=== PATIENT | female | born 1985 | race Caucasian/White ===

== ENCOUNTER 2021-05-03 16:52 | Emergency (ER) | payer OTHER ==
[2021-05-03 17:02] VITALS: BP 146/92
[2021-05-03] MEDS ORDERED: LIDOCAINE 1%-EPI 1:100000 20 ML MDV SUBQ STA (17:06)
--- NOTE | 2021-05-03 17:07 | ED Physician Documentation ---
PD HPI SKIN - Stated complaint Stated Complaint: FEMALE - Chief complaint Chief Complaint: Wound - History obtained from History obtained from: Patient - Additional information Additional information: 1-1/2 months of a painful lesion left groin, no fevers. Some drainage. Review of Systems Constitutional: reports: Reviewed and negative Eyes: reports: Reviewed and negative Ears: reports: Reviewed and negative Nose: reports: Reviewed and negative PD PAST MEDICAL HISTORY - Present Medications Home Medications: Ambulatory Orders Medication Instructions Recorded Confirmed clindamycin HCL [Cleocin HCl] 300 mg PO QID #28 cap 05/03/21 - Allergies Allergies/Adverse Reactions: Allergies Allergy/AdvReac Type Severity Reaction Status Date / Time amoxicillin Allergy Hives Verified 05/03/21 17:02 hydrocodone Allergy Itching Verified 05/03/21 17:02 PD ED PE NORMAL - Vitals Vital signs reviewed: Yes - General General: Alert and oriented X 3, No acute distress - Female Female : Other (What is probably a firm sebaceous cyst in the left posterior inguinal crease. Examined procedure done with female electrical power engineer at the bedside.) - Neuro Neuro: Alert and oriented X 3, Normal speech Results - Vitals Vitals: Vital Signs - 24 hr 05/03/21 17:00 Temperature 36.8 C Heart Rate 83 Respiratory 18 Rate Blood Pressure 146/92 H O2 Saturation 99 Oxygen O2 Source Room air Procedures - Abscess I&D (location) L groin Preparation: Chlorhexadine, Lidocaine 1% Incision: Incised with scalpel, Purulent drainage, Loculations broken Other: Antibiotic prescribed Departure - Departure Disposition: 01 Home, Self Care Clinical Impression: Sebaceous cyst of labia Condition: Good Record reviewed to determine appropriate education?: Yes Instructions: ED Abscess IandD Prescriptions: clindamycin HCL [Cleocin HCl] 300 mg PO QID #28 cap Comments: [place] and consider dermatology or surgery referral if there is a persistent lump there consistent with an incompletely removed sebaceous cyst.
== END 2021-05-03 17:39 | disposition home or self-care (01) ==
LOC: ED 16:52
DX: N94.89 Other specified conditions associated with female genital organs and menstrual cycle (principal)
CPT/HCPCS: 10060

== ENCOUNTER 2021-05-16 20:27 | Emergency (ER) | payer OTHER ==
[2021-05-16 20:33] VITALS: BP 146/105
[2021-05-16] MEDS ORDERED: ONDANSETRON ODT 4 MG TABLET TL STA (20:59)
[2021-05-16] MEDS ORDERED: ONDANSETRON ODT 4 MG Prepack 2 TL PRN (21:00)
--- NOTE | 2021-05-16 21:03 | ED Physician Documentation ---
History of Present Illness - Stated complaint Stated Complaint: STOMACH/N/V - Chief complaint Chief Complaint: Abd Pain - History obtained from History obtained from: Patient - Additonal information Additional information: Patient comes emergency department for chief complaint of nausea and vomiting, as well as loose stools. She states she has had a little bit of pain in her superiormost epigastric area. This is all started this evening. The patient states she ate pot roast with vegetables for dinner and that she has had this meal many times before without any issues. No history of recurrent nausea or abdominal pain with fatty meals. No family history of gallbladder issues. No fevers or chills. No sick contacts that she knows of. No other complaints at this time. Review of Systems Ten Systems: 10 systems reviewed and negative Constitutional: reports: Reviewed and negative Eyes: reports: Reviewed and negative Ears: reports: Reviewed and negative Nose: reports: Reviewed and negative Throat: reports: Reviewed and negative Cardiac: reports: Reviewed and negative Respiratory: reports: Reviewed and negative GI: reports: Abdominal Pain, Nausea, Vomiting : reports: Reviewed and negative Skin: reports: Reviewed and negative Musculoskeletal: reports: Reviewed and negative Neurologic: reports: Reviewed and negative Psychiatric: reports: Reviewed and negative Endocrine: reports: Reviewed and negative Immunocompromised: reports: Reviewed and negative PD PAST MEDICAL HISTORY - Past Surgical History Past Surgical History: Yes /SETTER UP: Breast implants - Present Medications Home Medications: Ambulatory Orders Medication Instructions Recorded Confirmed clindamycin HCL [Cleocin HCl] 300 mg PO QID #28 cap 05/03/21 Ondansetron Odt [Zofran] 4 mg TL Q6H PRN #10 tablet 05/16/21 - Allergies Allergies/Adverse Reactions: Allergies Allergy/AdvReac Type Severity Reaction Status Date / Time amoxicillin Allergy Hives Verified 05/16/21 20:32 hydrocodone Allergy Itching Verified 05/16/21 20:32 - Social History Does the pt smoke?: No Smoking Status: Never smoker Does the pt drink ETOH?: Yes Does the pt have substance abuse?: No - Immunizations Immunizations are current?: Yes PD ED PE NORMAL - Vitals Vital signs reviewed: Yes - General General: Alert and oriented X 3, No acute distress, Well developed/nourished - HEENT HEENT: Atraumatic, PERRL, EOMI, Moist mucous membranes - Neck Neck: Supple, no meningeal sign - Cardiac Cardiac: RRR, No murmur - Respiratory Respiratory: No respiratory distress, Clear bilaterally - Abdomen Abdomen: Soft, Non distended, Other (Mild tenderness right upper quadrant and epigastrium. No rebound or guarding.) - Derm Derm: Normal color, Warm and dry, No rash - Extremities Extremities: No deformity, No edema - Neuro Neuro: Alert and oriented X 3, public relations intern 2-12 intact, Normal speech - Psych Psych: Normal mood, Normal affect Results - Vitals Vitals: Vital Signs - 24 hr 05/16/21 20:30 Temperature 36.1 C L Heart Rate 98 Respiratory 18 Rate Blood Pressure 146/105 H O2 Saturation 100 Oxygen O2 Source Room air PD MEDICAL DECISION MAKING - ED course Complexity details: considered differential, d/w patient ED course: Patient was given an oral dissolving Zofran and a prepack for the same. I discussed that if she does develop recurrent upper GI symptoms after eating fatty meals, she should talk to her doctor about the possibility of work-up for cholelithiasis. We discussed the usual indications for return to the emergency department. Departure - Departure Disposition: 01 Home, Self Care Clinical Impression: Gastroenteritis Condition: Stable Instructions: ED Gastroenteritis Viral Prescriptions: Ondansetron Odt [Zofran] 4 mg TL Q6H PRN #10 tablet PRN Reason: Nausea / Vomiting Forms: Activity restrictions
== END 2021-05-16 21:34 | disposition home or self-care (01) ==
LOC: ED 20:27
DX: K52.9 Noninfective gastroenteritis and colitis, unspecified (principal)
CPT/HCPCS: 99282; 99284; Q0162

== ENCOUNTER 2021-09-13 20:21 | Emergency (ER) | payer OTHER ==
--- NOTE | 2021-09-13 20:34 | ED Physician Documentation ---
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 This is a task she has done in the past without problems. No direct impact or injury. No recent illness.) Timing - details: Intermittant Quality: Sharp, Pain Location: Substernal (She notes is midsternal just right of center with a sharp pain that comes on intermittently without obvious provocation lasts for seconds then fades over a minute and then is gone. She has had it 6-10 times through the day.), Right chest Radiation: No: Neck, Back, Abdominal Improved by: No: Rest Worsened by: No: Inspiration, Eating, Movement Associated symptoms: Shortness of air, Feeling faint / dizzy. No: Nausea, General Weakness, Palpitations Similar symptoms before: Has not had sx before Recently seen: Clinic (IUD removal 3 weeks ago without problems. Denies likelihood of .) Review of Systems Constitutional: denies: Fever, Chills Nose: denies: Rhinorrhea / runny nose, Congestion Throat: denies: Sore throat Cardiac: reports: Chest pain / pressure. denies: Palpitations, Pedal edema, Calf pain Respiratory: reports: Dyspnea. denies: Cough, Wheezing GI: denies: Abdominal Pain, Nausea, Vomiting, Diarrhea Skin: denies: Rash, Lesions Musculoskeletal: denies: Extremity swelling Neurologic: reports: Near syncope (has felt lightheaded with the episodes at times, not consistently.). 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 - Present Medications Home Medications: Ambulatory Orders Medication Instructions Recorded Confirmed Ondansetron Odt [Zofran] 4 mg TL Q6H PRN #10 tablet 05/16/21 - Allergies Allergies/Adverse Reactions: Allergies Allergy/AdvReac Type Severity Reaction Status Date / Time amoxicillin Allergy Hives Verified 09/13/21 20:27 hydrocodone Allergy Itching Verified 09/13/21 20:27 - Social History Does the pt smoke?: No Smoking Status: Never smoker Does the pt drink ETOH?: Yes ETOH Use: Other (occasional) Does the pt have substance abuse?: No - Family History Family history: denies: CAD, Sudden - Immunizations Immunizations are current?: Yes PD ED PE NORMAL - Vitals Vital signs reviewed: Yes - General General: Alert and oriented X 3, Well developed/nourished, Other (seems some tachypnea but is able to talk complete sentences. ) - HEENT HEENT: Atraumatic - Neck Neck: Supple, no meningeal sign, No adenopathy - Cardiac Cardiac: RRR, No murmur - Respiratory Respiratory: No respiratory distress, Clear bilaterally, Other (no chestwall tenderness. ) - Abdomen Abdomen: Soft, Non tender - Derm Derm: Normal color, Warm and dry - Extremities Extremities: No tenderness to palpate, No edema, No calf tenderness / cord - Neuro Neuro: Alert and oriented X 3, No motor deficit, Normal speech Results - Vitals Vitals: Vital Signs - 24 hr 09/13/21 09/13/21 09/13/21 20:27 20:32 21:01 Temperature 36.7 C 36.7 C Heart Rate 88 88 88 Respiratory 20 20 15 Rate Blood Pressure 151/98 H 151/98 H 127/69 O2 Saturation 100 100 100 09/13/21 09/13/21 21:02 21:40 Temperature 36.9 C Heart Rate 86 85 Respiratory 14 18 Rate Blood Pressure 126/83 H 124/70 O2 Saturation 99 100 Oxygen O2 Source Room air - EKG (time done) 20:25 Rate: Rate (enter#) (86) Rhythm: Sinus bradycardia Left Hand: Normal Intervals: Normal LA QRS: Normal Ischemia: Normal ST segments. No: ST elevation c/w ischemia, ST depression - Labs Labs: Laboratory Tests 09/13/21 09/13/21 09/13/21 20:32 20:32 20:32 WBC 12.3 H RBC 4.10 L Hgb 12.6 Hct 37.8 MCV 92.2 MCH 30.7 MCHC 33.3 RDW 12.0 Plt Count 236 MPV 9.9 Neut # (Auto) 7.2 H Lymph # (Auto) 4.0 H [place] # (Auto) 0.7 Eos # (Auto) 0.3 Baso # (Auto) 0.1 Absolute Nucleated RBC 0.00 Nucleated RBC % 0.0 D-Dimer Sodium 138 Potassium 3.2 L Chloride 105 Carbon Dioxide 26 Anion Gap 7.0 BUN 15 Creatinine 0.7 Estimated GFR (MDRD) 96 Glucose 111 H Calcium 9.1 Total Bilirubin 0.5 AST 18 ALT 22 Alkaline Phosphatase 53 Troponin I High Sens 3.0 B-Natriuretic Peptide Total Protein 6.9 Albumin 3.9 Globulin 3.0 Albumin/Globulin Ratio 1.3 Lipase 42 09/13/21 09/13/21 20:32 20:32 WBC RBC Hgb Hct MCV MCH MCHC RDW Plt Count MPV Neut # (Auto) Lymph # (Auto) [place] # (Auto) Eos # (Auto) Baso # (Auto) Absolute Nucleated RBC Nucleated RBC % D-Dimer < 200.0 L Sodium Potassium Chloride Carbon Dioxide Anion Gap BUN Creatinine Estimated GFR (MDRD) Glucose Calcium Total Bilirubin AST ALT Alkaline Phosphatase Troponin I High Sens B-Natriuretic Peptide 27 Total Protein Albumin Globulin Albumin/Globulin Ratio Lipase - Rads (name of study) chest xray Radiology: Prelim report reviewed (no acute process), See rad report PD MEDICAL DECISION MAKING - ED course Complexity details: reviewed results, re-evaluated patient, considered differential, d/w patient Departure - Departure Disposition: Home, Self Care Clinical Impression: Chest pain Qualifiers: Chest pain type: precordial pain Qualified Code(s): R07.2 - Precordial pain Condition: Stable Record reviewed to determine appropriate education?: Yes Instructions: ED Chest Pain Atypical Unkn Cause Follow-Up: [facility] [Provider Group] Comments: Your blood tests here as well as your EKG and chest x-ray are normal. Your blood tests included those to evaluate for heart attack (troponin), heart failure (BNP), and blood clots (D-dimer). On other blood testing your potassium was minimally low but should not contribute to pain like this. It was 3.2. Consider just some potassium rich foods over the next several days or week. With these testings, we can exclude pneumothorax, pneumonia, fluid in the lungs, heart attack or carditis, blood clots, pancreatitis. Unclear the cause of your pain. At this point would consider likely muscular as this would not really show up in any of the above tests. With that in mind, I would suggest using some anti-inflammatory such as ibuprofen 400 to 600 mg 3 times a day for the next several days. When the pain hits, you could try a Tums or antacid and see if it has an effect on it though this does not really sound like heartburn. Recheck if not completely resolved over the next 2 to 3 days with persisting episodes. Follow-up or return if other symptoms develop as well such as cough, fever, more consistent pain, vomiting rash etc. Discharge Date/Time: 09/13/21 21:41
[2021-09-13 20:39] LABS: EOSINOPHILS # (AUTO) 0.3 10^3/uL (0.0-0.7); EOSINOPHILS % (AUTO) 2.5 %
[2021-09-13 20:42] LABS: BASOPHILS # (AUTO) 0.1 10^3/uL (0.0-0.1); BASOPHILS % (AUTO) 0.5 %; HCT - HEMATOCRIT 37.8 % (37.0-47.0); HGB - HEMOGLOBIN 12.6 g/dL (12.0-16.0); LYMPHOCYTES % (AUTO) 32.3 %; MEAN CORPUSCULAR HEMOGLOBIN 30.7 pg (27.0-31.0); MEAN CORPUSCULAR HGB CONC 33.3 g/dL (32.0-36.0); MEAN CORPUSCULAR VOLUME 92.2 fL (81.0-99.0); MEAN PLATELET VOLUME 9.9 fL (7.9-10.8); MONOCYTES # (AUTO) 0.7 10^3/uL (0.0-1.0); MONOCYTES % (AUTO) 5.8 %; NEUTROPHILS # (AUTO) 7.2 10^3/uL (1.5-6.6); NEUTROPHILS % (AUTO) 58.7 %; PLT - PLATELET COUNT 236 10^3/uL (130-450); WHITE BLOOD COUNT 12.3 x10^3/uL (4.8-10.8)
[2021-09-13] MEDS ORDERED: KETOROLAC 30 MG/ML VIAL IVP STA (20:48)
[2021-09-13] MEDS ORDERED: MAG HYDROX/AL HYDROX/SIMETH 30 ML UDC PO STA (20:50)
[2021-09-13 20:56] LABS: ALBUMIN 3.9 g/dL (3.2-5.5); ALBUMIN/GLOBULIN RATIO 1.3 (1.0-2.2); BILIRUBIN,TOTAL 0.5 mg/dL (0.2-1.0); CALCIUM 9.1 mg/dL (8.5-10.3); CREATININE 0.7 mg/dL (0.4-1.0); POTASSIUM 3.2 mmol/L (3.5-5.0); TOTAL PROTEIN 6.9 g/dL (6.7-8.2)
--- NOTE | 2021-09-13 20:59 | XRAY Report ---
PROCEDURE: Chest 1 View X-Ray INDICATIONS: Chest pain TECHNIQUE: One view of the chest was acquired. COMPARISON: None FINDINGS: Surgical changes and devices: None. Lungs and pleura: No pleural effusions or pneumothorax. Lungs are clear. Mediastinum: Mediastinal contours appear normal. Heart size is normal. Bones and chest wall: No suspicious bony lesions. Overlying soft tissues appear unremarkable. IMPRESSION: No acute process. Reviewed by: Loreto Epperson MD on 09/13/2021 8:58 PM [facility] Approved by: Loreto Epperson MD on 09/13/2021 8:58 PM [facility] Station ID: [id number]
[2021-09-13 21:41] VITALS: BP 124/70
== END 2021-09-13 21:41 | disposition home or self-care (01) ==
LOC: ED 20:21
DX: R07.2 Precordial pain (principal)
CPT/HCPCS: 36415; 71045; 80053; 83690; 83880; 84484; 85025; 85379; 93005; 96374; 99284; A9270

== ENCOUNTER 2021-09-28 08:00 | Outpatient (CLI) | payer OTHER ==
[2021-09-28 18:00] LABS: BASOPHILS # (AUTO) 0.1 10^3/uL (0.0-0.1); BASOPHILS % (AUTO) 0.6 %; EOSINOPHILS # (AUTO) 0.3 10^3/uL (0.0-0.7); EOSINOPHILS % (AUTO) 3.2 %; HCT - HEMATOCRIT 38.6 % (37.0-47.0); HGB - HEMOGLOBIN 12.6 g/dL (12.0-16.0); LYMPHOCYTES # (AUTO) 2.7 10^3/uL (1.5-3.5); LYMPHOCYTES % (AUTO) 32.6 %; MEAN CORPUSCULAR HGB CONC 32.6 g/dL (32.0-36.0); MEAN CORPUSCULAR VOLUME 91.9 fL (81.0-99.0); MEAN PLATELET VOLUME 10.7 fL (7.9-10.8); MONOCYTES # (AUTO) 0.4 10^3/uL (0.0-1.0); MONOCYTES % (AUTO) 4.9 %; NEUTROPHILS # (AUTO) 4.8 10^3/uL (1.5-6.6); NEUTROPHILS % (AUTO) 58.6 %; PLT - PLATELET COUNT 251 10^3/uL (130-450); RED CELL DISTRIBUTION WIDTH 12.2 % (12.0-15.0); WHITE BLOOD COUNT 8.2 x10^3/uL (4.8-10.8)
[2021-09-28 18:15] LABS: ALBUMIN 4.2 g/dL (3.2-5.5); ALBUMIN/GLOBULIN RATIO 1.6 (1.0-2.2); BILIRUBIN,TOTAL 0.6 mg/dL (0.2-1.0); CALCIUM 9.5 mg/dL (8.5-10.3); CREATININE 0.6 mg/dL (0.4-1.0); TOTAL PROTEIN 6.9 g/dL (6.7-8.2)
[2021-09-28 18:22] LABS: RHEUMATOID FACTOR NEGATIVE (Negative)
[2021-09-28 19:04] LABS: THYROID STIMULATING HORMONE 0.01 uIU/mL (0.34-5.60)
[2021-09-28 19:36] LABS: FREE T4 (FREE THYROXINE) 1.67 ng/dL (0.58-1.64)
== END 2021-09-28 23:59 | disposition home or self-care (01) ==
LOC: LAB.N 08:00
PROVIDERS: ATTEND Family Medicine
DX: R53.81 Other malaise (principal); R53.83 Other fatigue
CPT/HCPCS: 36415; 80053; 84439; 84443; 85025; 85651; 86430

== ENCOUNTER 2021-09-29 10:02 | Outpatient (CLI) | payer OTHER ==
[2021-10-01 14:56] LABS: THYROID PEROXIDASE ANTIBODIES 19 IU/mL (<9)
== END 2021-09-29 10:03 | disposition home or self-care (01) ==
LOC: LAB.N 10:02
PROVIDERS: ATTEND Family Medicine
DX: E05.90 Thyrotoxicosis, unspecified without thyrotoxic crisis or storm (principal)
CPT/HCPCS: 86376; 86800

== ENCOUNTER 2022-01-24 12:42 | Outpatient (CLI) | payer OTHER ==
[2022-01-24 16:27] VITALS: BP 118/80
--- NOTE | 2022-01-24 16:27 | SLEEP CARE CONSULTATION ---
Information from patient questionnaire entered by Peng Nash. I have reviewed and concur with the information entered by Peng Nash. This document represents the service I personally performed and the decisions made by me, Deniz Iraheta MD, [facility]. History of Present Illness Service Date and Time: 01/24/2022 1242 Reason for Visit: New patient (INITIAL ONSET: 03/2021, NO PRIORS) Chief Complaint: reports: Insomnia, Unrefreshed sleep, Snoring, Excessive daytime sleepiness, Observed pauses in breathing, Fatigue, Frequent awakenings at night Date of Onset: ONSET: 9 MONTHS Usual bedtime: 1000PM Time it takes to fall asleep: 1-2 HOURS Snores at night: Yes Observed to quit breathing while asleep: Yes Sleeps alone due to snoring: No Number of times waking at night: 4-5 Reasons for waking at night: reports: Snoring, Bathroom, Other (UNKNOWN REASON) Toss, Turn, or Twitch while sleeping: Yes Recalls having dreams: Yes Usually gets out of bed at: 7AM Feels refreshed in the morning: No Morning headache: Yes (RESOLVES 1-2 HOURS) Sleepy or fatigued during the day: Yes Ever fallen asleep while driving: No Takes day naps: Yes Dreams during day naps: No Prior sleep studies: No Additional HPI information: I have the pleasure of seeing Ms. Barnard today regarding the possibility of her having obstructive sleep apnea. As you know, she is a 36-year-old lady who complains of loud snore and observed apneas. She said during her hospitalization for thyroidectomy, she was witnessed to have stopped breathing during sleep. The patient tells me that she normally goes to bed around 10 pm, and it takes her approximately 1 2 hours to fall asleep. She can recall waking up on the average of 4 - 5 times during the night. Most of the time she wakes up because of having to use the bathroom and her own snore. There is a lot of tossing and turning in her sleep. She has somniloquy (sleep talking) but not somnambulism (sleep walking). Generally she can recall having dreams. In the morning she usually gets up out of the bed around 7 a.m. not feeling refreshed nor rested. She usually has a morning headache that goes away within an hour. During the day she complains of feeling sleepy and fatigued. Her score on [place] Sleepiness Scale is 13 out of 24. She never has fallen asleep while driving nor has had any accident due to sleepiness. She usually takes naps during the day. Upon falling asleep during the day she denies having vivid dreams. She has never had sleep paralysis, experienced cataplexy or symptoms of restless leg syndrome. She reports having impaired concentration during the day. 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 Patient is Single and lives in . Have you smoked in the past 12 months: Yes Years of smokin Quit date: JUN Alcohol use: No Caffeine use: Yes Caffeine amount and frequency: 3-4 cups daily Family History Family Hx Sleep Apnea: Mother: Snoring, Father: Snoring, Sleep apnea - Treated, Sibling: Snoring Allergies and Home Medications Known drug allergies: Yes (AMOXICILLIN, HYDROCODONE) Drug allergies reviewed: Yes Home medication list reviewed: Yes Allergy and home medication list: Allergies amoxicillin Allergy (Verified 09/13/21 20:27) Hives hydrocodone Allergy (Verified 09/13/21 20:27) Itching Review of Systems Cardiovascular: denies: high blood pressure, palpitations, chest pain, irregular heart rate or pulse, leg or foot swelling, have to sleep sitting up, other Respiratory: denies: shortness of breath, wheeze, sputum production, chronic cough, other Gastrointestinal: denies: heartburn, difficulty swallowing, nausea, vomitting, diarrhea, abdominal pain, other Urinary: denies: incontinence, frequency, urgency, impotence, other Neurological: reports: headaches, gait or balance problems, other (BILATERAL VISION LOSS OCCASIONALLY 2+ MONTHS AGO) Psychiatric: denies: Attention Deficit Hyperactivity, anxiety, depression, mood disorder, claustrophobia, other Ear/Nose/Throat: reports: injury to nose, wisdom teeth removed Endocrine: reports: thyroid disease, sluggishness, too hot or cold, unexplained weakness Musculoskeletal: reports: joint pain, neck pain, back pain Immunologic: denies: sneezing, rash, itching, allergies to food or environment, other Physical Exam Vital signs obtained and entered by: ANGIE, PROGRAM PARAPROFESSIONAL Blood Pressure: 118/80 (LEFT ARM ) Heart Rate: 74 O2 Saturation: 98 Height: 5 ft 4 in Weight: 145 lb Body Mass Index: 24.9 BMI Classification: Healthy weight Mood/affect: Normal HEENT: No craniofacial malformation Nostrils: patent to airflow Turbinates: normal Septum: midline Mouth and throat: normal Soft palate: normal Hard palate: normal Uvula: normal Uvula visualization: 25% Mallampati Class III Tongue: normal in size Tonsils: small Chin and jaw: normal size and position Neck: normal w/o lymphadenopathy or thyromegaly Heart: regular rate and rhythm Lungs: clear bilaterally Extremities: no edema or clubbing Neurologic: intact, no focal deficits Impression and Plan IMPRESSION: 1. Obstructive Sleep Apnea-Hypopnea Syndrome, as evident by history of loud and irregular snoring, observed cessation of breath while asleep, frequent awakenings during the night, unrefreshed sleep, morning headache, cognitive impairment, and daytime hypersomnolence. I recommend proceeding to polysomnography to confirm the diagnosis and to assess severity. I informed the patient of what the sleep studies involve and after some discussion, she agreed to proceed. Plan: 1. Schedule an in-laboratory polysomnography. 2. Avoid long distance driving or when feeling sleepy. 3. Avoid alcohol, sedative and muscle relaxant around bedtime. 4. Return for follow up after the sleep study. Follow up with Sleep Care in: 1-2 months Visit Type: In Office Time Spent with Patient (minutes): 20 Provider Statement: I spent 100% of the Face to Face Visit with the patient with greater than 50% spent counseling the patient and coordination of care.
== END 2022-01-24 12:43 | disposition home or self-care (01) ==
LOC: SC 12:42
PROVIDERS: ATTEND Internal Medicine Pulmonary Disease
DX: R06.83 Snoring (principal); R06.81 Apnea, not elsewhere classified; R51.9 Headache, unspecified; G47.10 Hypersomnia, unspecified; G47.8 Other sleep disorders; Z87.891 Personal history of nicotine dependence
CPT/HCPCS: 99202; 99212

== ENCOUNTER 2022-02-03 19:30 | Outpatient (CLI) | payer OTHER | END 2022-02-03 19:31 | disposition home or self-care (01) | LOC: SC 19:30 | PROVIDERS: ATTEND Internal Medicine Pulmonary Disease | DX: R06.83 Snoring (principal); R51.9 Headache, unspecified; G47.8 Other sleep disorders; G47.10 Hypersomnia, unspecified; R06.81 Apnea, not elsewhere classified | CPT/HCPCS: 95810 ==

== ENCOUNTER 2022-02-11 10:25 | Outpatient (CLI) | payer OTHER ==
[2022-02-11 11:00] VITALS: BP 122/75
--- NOTE | 2022-02-11 11:00 | SLEEP CARE CONSULTATION ---
Information from patient questionnaire entered by Sadie Pacheco MA. I have reviewed and concur with the information entered by Sadie Pacheco MA. This document represents the service I personally performed and the decisions made by Faye lopez Caren J, ARNP. History of Present Illness Service Date and Time: 02/11/2022 1025 Initial [place] Sleepiness Scale score: 13 Current [place] Sleepiness Scale score: 17 (02/11/2022) Additional HPI information: EVON GREEN returns for follow up and results of the recently performed polysomnography. The patient was informed of the following findings: No significant sleep disordered breathing with an average AHI of 1.0 and richard oxygen saturation of 90%. I explained the pathophysiology behind obstructive sleep apnea. Patient does not have sleep apnea and was advised how weight gain could increase the risk of developing sleep apnea in the future. Patient has light snoring. Snoring can also be treated with an oral appliance from a dentist. Advised to check insurance coverage. In addition, an ENT evaluation can be do to see if other treatment is indicated. Sleep Study - Results Type of Sleep Study: Polysomnography (F/U POLY, 02/03/2022, NEG) Prior sleep studies: No Polysomnography/Home Sleep Study results: IMPRESSION: The quality of the study is good. The patient had normal sleep efficiency. The sleep architecture was normal as well. Respiratory monitoring showed no significant sleep disordered breathing (AHI = 1.0) or hypoxia (richard oxygen saturation of 90%). The patient slept adequately in supine position (supine AHI = 1.0; nonsupine = 1.04). Snore was infrequent and light in intensity. There was no significant periodic leg movement of sleep. Cardiac rhythm was normal sinus rhythm without significant arrhythmia. No abnormal behavior (parasomnia) observed during the night. Allergies and Home Medications Known drug allergies: Yes (AMOXICILLAN, HYDROCODONE) Home medication list reviewed: Yes (Hydroxychloroquine 400 mg daily) Allergy and home medication list: Allergies amoxicillin Allergy (Verified 09/13/21 20:27) Hives hydrocodone Allergy (Verified 09/13/21 20:27) Itching Review of Systems Review of systems same as previous: Yes (Rheumatoid Arthritis) Physical Exam Vital signs obtained and entered by: Giovanni PACHECO CMA AARENEA Blood Pressure: 122/75 (RESP 16, PULSE 73, RIGHT) Cuff size: wrist Heart Rate: 73 O2 Saturation: 98 Height: 5 ft 4 in Weight: 144 lb (UNIFORM AND BOOTS) Body Mass Index: 24.7 BMI Classification: Healthy weight Impression and Plan Snoring but no significant sleep disordered breathing. Evon had a thyroidectomy because of an enlarged thyroid in December 2021. Her has mentioned that her snoring has improved immensely since having the surgery. She was recently diagnosed with rheumatoid arthritis which could be the main contributor to her daytime physical fatigue. Patient advised that often weight loss will reduce snoring as well as apnea risk. An oral appliance can also be used for snoring. This would require a dental consultation. Patient cautioned not to use other online appliances as can cause bite issues. A list of accredited dentists in [facility] and one local dentist who makes oral appliances is available in office. Patient is advised to check if insurance will cover. An ENT consult can also be helpful to determine if any other treatment is an option. * Maintain healthy weight * Return as needed for follow up. Counseling Topics: Weight control Visit Type: In Office Time Spent with Patient (minutes): 20 Provider Statement: I spent 100% of the Face to Face Visit with the patient with greater than 50% spent counseling the patient and coordination of care.
== END 2022-02-11 10:26 | disposition home or self-care (01) ==
LOC: SC 10:25
PROVIDERS: ATTEND Nurse Practitioner Family
DX: R06.83 Snoring (principal)
CPT/HCPCS: 99212; 99213